=== PATIENT | male | born 1990 | race Two or more races ===

== ENCOUNTER 2023-01-16 01:55 | Emergency (ER) | payer OTHER ==
[~2023-01-16] VITALS: Ht 162.6 cm; Wt 72.0 kg
[2023-01-16 01:55] VITALS: BP 117/62; PULSE 62; RESP 20; TEMP 98.3
[2023-01-16] MEDS ORDERED: AUG875T PO (03:38)
[2023-01-16] MEDS ORDERED: IBUP-1456 PO (03:38)
[2023-01-16] MEDS ORDERED: BENZOCAINE (DENTAL) 20 % SPRAY 60ML MT ONE (03:45)
[2023-01-16] MEDS ORDERED: IBUPROFEN 800 MG TAB PO ONE (03:45)
[2023-01-16] MEDS ORDERED: HYDROcodone-ACET 10/325MG TAB PO ONE (03:45)
[2023-01-16 04:14] VITALS: O2SAT 98
== END 2023-01-16 04:22 | disposition home or self-care (01) ==
LOC: ER 01:55
DX: K04.7 Periapical abscess without sinus (principal)